=== PATIENT | male | born 1955 | race Caucasian/White ===

== ENCOUNTER 2016-12-26 15:56 | Emergency (ER) | payer OTHER ==
[~2016-12-26] VITALS: Ht 180.3 cm; Wt 82.7 kg
[2016-12-26 16:25] LABS: EOSINOPHIL (%) 0.8 % (0-5); EOSINOPHIL COUNT 0.1 K/uL (0-0.3); HEMATOCRIT 41.1 % (38.0-50.0); IMMATURE GRANULOCYTE (%) 0.3 % (0.0-0.7); IMMATURE GRANULOCYTE COUNT 0.3 K/uL; LYMPHOCYTE COUNT 1.5 K/uL (1.0-2.8); MCH 29.5 PG (29.0-34.0); MCHC 34.5 G/DL (30.0-36.0); MCV 85.4 FL (86-99); MEAN PLAT.VOLUME 9.4 uM^3 (9.0-12.4); MONOCYTE (%) 8.4 % (3-12); MONOCYTE COUNT 0.9 K/uL (0-0.8); NEUTROPHIL (%) 76.5 % (45-76); NEUTROPHIL COUNT 8.4 K/uL (1.8-6.4); PLATELET COUNT 250 K/uL (156-360); RBC DIS.WIDTH-CV 12.8 % (11.8-14.6); RBC DIS.WIDTH-SD 39.4 % (39-53); RED BLOOD COUNT 4.81 M/uL (4.00-5.50)
[2016-12-26 16:42] LABS: CHLORIDE 108 mEq/L (99-109); POTASSIUM 4.2 mEq/L (3.7-5.4); SODIUM 144 mEq/L (136-147)
[2016-12-26 16:44] LABS: GLUCOSE 88 mg/dL (70-99)
[2016-12-26 16:45] LABS: ANION GAP 9 MEQ/L (2-14)
[2016-12-26 16:48] LABS: GFR ESTIMATE (CALCULATED) > 59 mL/min/
[2016-12-26 16:49] LABS: D-DIMER ELISA 1.48 mg/L FEU (< 0.57); INTER. NORMALIZED RATIO 1.1; PROTHROMBIN TIME 11.2 (9.2-11.2); PTT 27.1 (25-32); UREA NITROGEN (BUN) 14 mg/dL (9-23)
[2016-12-26 16:53] LABS: TROP-I INTERPRETATION NEGATIVE; TROPONIN-I < 0.01 ng/mL (0.0-0.30)
[2016-12-26 19:11] LABS: TROP-I INTERPRETATION NEGATIVE; TROPONIN-I < 0.01 ng/mL (0.0-0.30)
[2016-12-26] MEDS ORDERED: TYLENOL WITH C1 EACH PO (19:36)
[2016-12-26 19:45] VITALS: BP 123/76
== END 2016-12-26 19:47 | disposition home or self-care (01) ==
LOC: EME 15:56
PROVIDERS: Emergency Medicine
DX: R07.89 Other chest pain (principal); R42 Dizziness and giddiness; M79.601 Pain in right arm; Z98.890 Other specified postprocedural states; R79.1 Abnormal coagulation profile
CPT/HCPCS: 71010; 71275; 80048; 84484; 85025; 85379; 85610; 85730; 93005; 99281; 99284; J1885